=== PATIENT | female | born 1960 | race Two or more races ===

== ENCOUNTER 2024-12-04 12:11 | Emergency (ER) | payer BC, OTHER ==
[2024-12-04 12:48] VITALS: BP 137/97; PULSE 18; RESP 18; TEMP 98.3; BMI 23.0
[2024-12-04 13:17] LABS: ABSOLUTE IMMATURE GRANULOCYTES 0.01 x10^3/uL (0.0-0.031); BASOPHILS # 0.02 x10^3/uL (0.01-0.08); EOSINOPHIL % 0.6 % (0.7-5.8); EOSINOPHILS # 0.03 x10^3/uL (0.04-0.36); MCHC 33.5 g/dl (32.2-35.5); MEAN CELL VOLUME 88.7 fl (79.4-94.8); MEAN PLT VOLUME 11.0 fl (9.4-12.3); MONOCYTE # 0.34 x10^3/uL (0.24-0.86); MONOCYTE % 7.1 % (4.7-12.5); RDW 13.8 % (12.4-16.4)
[2024-12-04] MEDS ORDERED: METOCLOPRAMIDE HCL INJECTION 10 MG/2 ML VIAL ONE (13:28)
[2024-12-04] MEDS ORDERED: ACETAMINOPHEN INJECTION 100 ML ONE (13:28)
[2024-12-04] MEDS: METOCLOPRAMIDE HCL INJECTION 10 MG/2 ML VIAL IVPUSH ONE (13:29)
[2024-12-04] MEDS: SODIUM CHLORIDE 500 ML IV STA (13:38)
[2024-12-04] MEDS: ACETAMINOPHEN 1000 MG/100 ML BAG IVPB ONE (13:39)
[2024-12-04 13:44] LABS: ALK PHOS 98.0 U/L (45-117); CO2 28.0 mmol/L (21-32); CREATININE 0.7 mg/dl (0.6-1.3); GLUCOSE,RANDOM 101.0 mg/dl (74-106); SGOT/AST 19.0 U/L (15-37); SGPT/ALT 13.0 U/L (7-52); TOT PROT 6.6 g/dl (6.4-8.2)
[2024-12-04 16:11] LABS: HIV INTERPRETATION NEGATIVE (NEGATIVE)
[2024-12-04 16:12] LABS: HCV DIAGNOSTIC IN-HOUSE W/RFLX NON-REACTIVE (NONREACTIVE)
== END 2024-12-04 15:07 | disposition home or self-care (01) ==
LOC: FER 12:11
PROC: 3E033NZ Introduction of Analgesics, Hypnotics, Sedatives into Peripheral Vein, Percutaneous Approach (ICD-10-PCS; principal; 2024-12-04)
PROC: 3E033GC Introduction of Other Therapeutic Substance into Peripheral Vein, Percutaneous Approach (ICD-10-PCS; 2024-12-04)
PROC: 3E0337Z Introduction of Electrolytic and Water Balance Substance into Peripheral Vein, Percutaneous Approach (ICD-10-PCS; 2024-12-04)
DX: R51.9 Headache, unspecified (principal); R42 Dizziness and giddiness; R20.2 Paresthesia of skin
CPT/HCPCS: 36415; 70450-TC; 80053; 83735; 84484; 85025; 86803; 87389; 93005; 99285-25